=== PATIENT | female | born 1990 | race Two or more races ===

== ENCOUNTER 2025-02-01 09:36 | Emergency (ER) | payer OTHER ==
[~2025-02-01] VITALS: Ht 170.2 cm; Wt 80.0 kg
[2025-02-01 09:40] VITALS: O2SAT 99
[2025-02-01 10:45] LABS: BASOPHILS % 0.5 % (0.0-2.0); EOSINOPHILS % 0.3 % (0.0-5.0); HEMATOCRIT. 39.4 % (36.0-48.0); HEMOGLOBIN. 12.7 g/dL (12.0-16.0); LYMPHOCYTES % 13.6 % (20.0-50.0); MEAN PLATELET VOLUME 9.0 fl (7.4-10.4); MONOCYTES % 7.0 % (2.0-8.0); NEUTROPHILS % 78.6 % (40.0-76.0); PLATELET 188 x1000/uL (130-400); RED BLOOD CELL COUNT 4.80 mill/uL (4.2-5.4); RED CELL DISTRIBUTION WIDTH 16.2 % (11.6-14.6)
[2025-02-01 10:58] LABS: HCG SCREEN NEGATIVE
[2025-02-01 10:59] LABS: CREATININE 0.7 mg/dL (0.6-1.0); UREA NITROGEN BLOOD 6 mg/dL (9-23)
[2025-02-01 11:00] LABS: ETHANOL BLOOD 26 mg/dL (<10)
[2025-02-01 11:01] LABS: ASPARTATE AMINOTRANSFERASE 24 IU/L (<34); BILIRUBIN DIRECT 0.2 mg/dL (<=3.0); BILIRUBIN TOTAL 0.6 mg/dL (0.1-1.0)
[2025-02-01 11:02] LABS: PROTEIN TOTAL 6.1 g/dL (6.0-8.3)
[2025-02-01 11:09] LABS: INR 1.1
[2025-02-01] MEDS ORDERED: IOHEXOL-350 100 ML BOTTLE ONE (13:42)
[2025-02-01] MEDS ORDERED: MAGNESIUM/ALUMINUM HYDROXIDE/SIMETHICONE 30ML UDC PO PRN (13:45)
[2025-02-01] MEDS ORDERED: ONDANSETRON HCL 4MG/2ML INJ IV PRN (13:45)
[2025-02-01] MEDS ORDERED: CLONIDINE 0.1MG TABLET PO PRN (13:45)
[2025-02-01] MEDS ORDERED: MORPHINE SULFATE 2 MG/ML INJ (NOT FOR IM USE) IV PRN (13:45)
[2025-02-01] MEDS ORDERED: ACETAMINOPHEN 325MG TABLET PO PRN (13:45)
[2025-02-01] MEDS ORDERED: LORAZEPAM 2MG/ML UD SYRINGE IV PRN (13:45)
[2025-02-01] MEDS ORDERED: HYDROCODONE/ACETAMINOPHEN 5/325MG TABLET PO PRN (13:45)
[2025-02-01 13:51] VITALS: BP 127/66; PULSE 69; RESP 16; TEMP 36.8; O2SAT 100
[2025-02-01] MEDS ORDERED: MVI, ADULT NO.1 10 ML, FOLIC ACID 1 MG, THIAMINE HCL 100 MG in SODIUM CHLORIDE 0.9% 1,0... IV SCH (14:00)
[2025-02-01] MEDS ORDERED: SODIUM CHLORIDE 0.9% 1,000 ML IV SCH (14:00)
[2025-02-01] MEDS ORDERED: ENOXAPARIN 40MG/0.4ML SYR SUBCUT SCH (14:00)
[2025-02-01] MEDS ORDERED: ZOLPIDEM TARTRATE 5MG TABLET PO PRN (21:00)
[2025-02-02] MEDS ORDERED: PANTOPRAZOLE SODIUM 40 MG/VIAL IV SCH (09:00)
== END 2025-02-01 13:54 | disposition left against medical advice (07) ==
LOC: ER 09:57 → EDBEDREQTM 12:28 → EDBEDREQ 12:28 → ER 13:54 → CMPBEDREQ 14:55
DX: G93.41 Metabolic encephalopathy (principal); R10.20 Pelvic and perineal pain unspecified side; Z79.899 Other long term (current) drug therapy; Z98.890 Other specified postprocedural states
CPT/HCPCS: 80076; 80048; 80320; 84703; 85025; 85610; 85730; 36415; 71045; 70496; 70498; 70450; 93005; 99291; Q9967; J3411; J3490; J7030; G0480